=== PATIENT | female | born 1930 | race Caucasian/White ===

== ENCOUNTER 2017-04-13 12:19 | Emergency (ER) | payer MEDICARE, OTHER ==
[~2017-04-13] VITALS: Ht 175.3 cm; Wt 52.2 kg
[~2017-04-13 12:19] MED LIST: ASPIR 8181 MG PO; CARDIZEM CD180 MG PO; CENTRUM SILVER1 EAC1 PO; CENTRUM SILVER1 EAC3 PO; DIGOXIN125 MCG PO; OMEPRAZOLE40 MG PO; PROTONIX40 MG/ML PO; XANAX1 MG PO; Z DILTIAZEM PO; Z.0.LISINOPRIL10 MG PO; Z.0.OMEPRAZOLE20 M1 PO; [UNRECOGNIZED DRUG - OTHER] PO
[2017-04-13] MEDS ORDERED: SODIUM CHLORIDE 0.9% 1000ML 1,000 ML IV STA (12:36)
[2017-04-13] MEDS ORDERED: DIATRIZOATE MEGL/DIATRIZOA SOD 30 ML BTL PO ONE (12:47)
[2017-04-13 12:54] LABS: BASOPHILS % 0.8 % (0.0-1.0); EOSINOPHILS % 0.6 % (0.0-6.0); LYMPHOCYTES # (AUTO) 0.9 (1.0-3.2); LYMPHOCYTES % 17.9 % (18.0-39.1); MEAN CORPUSCULAR HEMOGLOBIN 30.5 pg (28-32); MEAN CORPUSCULAR HGB CONC 33.3 g/dL (31-35); MEAN CORPUSCULAR VOLUME 91.5 fL (81-99); MONOCYTES # (AUTO) 0.6 (0.2-0.8); MONOCYTES % 11.7 % (4.4-11.3); NEUTROPHILS # (AUTO) 3.4 (2.1-6.9); NEUTROPHILS % 68.8 % (38.7-80.0); PLATELET COUNT 176 x10e3/uL (140-360); RED BLOOD COUNT 4.26 x10e6/uL (3.6-5.1); RED CELL DISTRIBUTION WIDTH 12.2 % (11.7-14.4)
[2017-04-13 13:25] LABS: ALANINE AMINOTRANSFERASE 25 IU/L (0-55); ALBUMIN 4.3 g/dL (3.5-5.0); ALBUMIN/GLOBULIN RATIO 1.3 (0.8-2.0); ALKALINE PHOSPHATASE 86 IU/L (40-150); AMYLASE 56 U/L (25-125); ANION GAP 14.8 mmol/L (8-16); BLOOD UREA NITROGEN 8 mg/dL (7-26); BUN/CREATININE RATIO 11 (6-25); CALCIUM 9.4 mg/dL (8.4-10.2); CARBON DIOXIDE 29 mmol/L (22-29); CHLORIDE 95 mmol/L (98-107); EST GLOMERULAR FILTRATION RATE > 60 ML/MIN (60-); GLUCOSE 136 mg/dL (74-118); LIPASE 17 U/L (8-78); POTASSIUM 3.8 mmol/L (3.5-5.1); SODIUM 135 mmol/L (136-145)
--- NOTE | 2017-04-13 15:04 | Diagnostic Imaging Report ---
EXAM: CT Abdomen and Pelvis WITH contrast INDICATION: Lower abdominal pain, history of hernia COMPARISON: CT of the abdomen and pelvis from 12/29/2014 TECHNIQUE: Abdomen and pelvis were scanned utilizing a multidetector helical scanner from the lung base to the ischial tuberosities after administration of IV contrast. Coronal and sagittal reformations were obtained. Routine protocol was performed. Scan was performed when during portal venous phase. IV CONTRAST: 100 mL of Isovue-370 ORAL CONTRAST: Gastroview RADIATION DOSE: Total DLP: 180.43 mGy*cm Estimated effective dose: DLP x 0.015 mSv COMPLICATIONS: None FINDINGS: LINES and TUBES: None. LOWER THORAX: Cardiomegaly. Small right pleural effusion. HEPATOBILIARY: No focal hepatic lesions. No biliary ductal dilation. GALLBLADDER: Not visualized SPLEEN: No splenomegaly. PANCREAS: No ductal dilatation. 7 mm cystic-appearing lesion in the pancreatic body/tail (coronal series 301, image 25) is smaller than before. ADRENALS: 1.8 cm left adrenal nodule (series 2, image 23), unchanged. Moderate thickening of the right adrenal gland without discrete nodule, unchanged. KIDNEYS/URETERS: Kidneys enhance symmetrically. No hydronephrosis. 6.2 cm cyst in the inferior pole of the right kidney, unchanged. Tiny hypodensities in the left kidney likely represent cysts also. No stones. GI TRACT: No abnormal distention, wall thickening, or evidence of bowel obstruction. Numerous diverticula in the sigmoid colon. There is a moderate stool burden. The appendix is not well seen, but there is no suspicious inflammation in the right lower quadrant. PELVIC ORGANS/BLADDER: The uterus is absent. LYMPH NODES: No lymphadenopathy. VESSELS: There is moderate atherosclerotic disease in the aorta and major arterial branches. PERITONEUM / RETROPERITONEUM: No free air or fluid. BONES: Multilevel degenerative changes of the thoracic and lumbar spine. Facet arthrosis of the lower lumbar spine. Degenerative changes of the hips, left greater than right. SOFT TISSUES: Unremarkable. IMPRESSION: 1. No specific findings to account for the patient's pain. No hernia. 2. Indeterminate left adrenal nodule, unchanged. 3. Previously described cystic lesion in the pancreatic body is smaller than before. No pancreatic ductal dilatation. Consider follow-up MRI in one to 2 years to ensure stability. Pavel Rush MD Signed by: Dr. Pavel Rush M.D. on 04/13/2017 3:01 PM
[2017-04-13] MEDS ORDERED: IOPAMIDOL 370 MG/ML 200 ML INFUS..BTL INJ ONE (18:05)
[2017-04-13] MEDS ORDERED: SODIUM CHLORIDE 0.9% 50ML 50 ML ONE (18:05)
== END 2017-04-13 16:05 | disposition home or self-care (01) ==
LOC: ER 12:19
DX: R10.10 Upper abdominal pain, unspecified (principal); I10 Essential (primary) hypertension; I51.9 Heart disease, unspecified
CPT/HCPCS: 36415; 74177; 80053; 82150; 83690; 85025; 93005; 99284; Q9967

== ENCOUNTER 2018-08-05 14:35 | Emergency (ER) | payer MEDICARE, OTHER ==
[~2018-08-05] VITALS: Ht 175.3 cm; Wt 52.2 kg
[2018-08-05] MEDS ORDERED: MAGNESIUM/ALUMINUM/SIMETHICONE 30 ML UDC PO ONE (14:45)
[2018-08-05] MEDS ORDERED: ASPIRIN 81 MG CHEW TAB PO ONE (14:45)
[2018-08-05] MEDS ORDERED: LIDOCAINE VISC 2% SOLN 15 ML UDC PO ONE (14:45)
[2018-08-05] MEDS ORDERED: BELLADONNA ALK/PHENOBARBITAL 5 ML UDC PO ONE (14:45)
[2018-08-05 15:24] LABS: BASOPHILS % 0.4 % (0.0-1.0); EOSINOPHILS % 0.8 % (0.0-6.0); HEMATOCRIT 40.6 % (34.2-44.1); HEMOGLOBIN 13.7 g/dL (12.0-16.0); LYMPHOCYTES # (AUTO) 1.1 (1.0-3.2); LYMPHOCYTES % 22.3 % (18.0-39.1); MEAN CORPUSCULAR HEMOGLOBIN 30.4 pg (28-32); MEAN CORPUSCULAR HGB CONC 33.7 g/dL (31-35); MONOCYTES # (AUTO) 0.6 (0.2-0.8); MONOCYTES % 11.7 % (4.4-11.3); NEUTROPHILS # (AUTO) 3.1 (2.1-6.9); NEUTROPHILS % 64.6 % (38.7-80.0); PLATELET COUNT 199 x10e3/uL (140-360); RED BLOOD COUNT 4.51 x10e6/uL (3.6-5.1); RED CELL DISTRIBUTION WIDTH 13.8 % (11.7-14.4)
--- NOTE | 2018-08-05 15:32 | Diagnostic Imaging Report ---
EXAM: CHEST SINGLE (PORTABLE) DATE: 08/05/2018 2:42 PM INDICATION: Epigastric pain ^ERMD ORDER ^Y COMPARISON: Chest x-ray, 11/11/2015 FINDINGS: Lines and tubes: Stable appearance of implanted cardiac device on the left and transvenous lead positions. Cardiac silhouette is moderately enlarged. There is central pulmonary vascular prominence. No peripheral consolidation, pleural effusion or pneumothorax. Upper abdomen shows lucency beneath the right hemidiaphragm. No acute bony abnormality. Findings were discussed with Crys Saravia NP, in the emergency department on 08/05/2018 at 3:25 PM. IMPRESSION: 1. Cardiomegaly with central pulmonary vascular prominence. No consolidation or pneumothorax. 2. Lucency beneath the right hemidiaphragm is concerning for pneumoperitoneum, but may instead represent atelectasis at the right lung base. Recommend abdominal series with supine and upright views, or abdominal CT for further evaluation. Signed by: Dr. Elias Murray M.D. on 08/05/2018 3:28 PM
[2018-08-05 15:42] LABS: BILIRUBIN,URINE NEGATIVE (NEGATIVE); CLARITY,URINE CLEAR (CLEAR); COLOR,URINE YELLOW (YELLOW); KETONES,URINE NEGATIVE (NEGATIVE); LEUKOCYTE ESTERASE ,URINE NEGATIVE (NEGATIVE); NITRITE,URINE NEGATIVE (NEGATIVE); PROTEIN,URINE DIPSTICK NEGATIVE (NEGATIVE); URINE UROBILINOGEN 0.2 mg/dL (0.2 - 1)
[2018-08-05 16:13] LABS: INR 0.93; PARTIAL THROMBOPLASTIN TIME 35.2 seconds (23.8-35.5)
[2018-08-05 16:24] LABS: ALANINE AMINOTRANSFERASE 30 IU/L (0-55); ALBUMIN 4.2 g/dL (3.5-5.0); ALBUMIN/GLOBULIN RATIO 1.3 (0.8-2.0); ALKALINE PHOSPHATASE 84 IU/L (40-150); BLOOD UREA NITROGEN 10 mg/dL (7-26); BUN/CREATININE RATIO 14 (6-25); CALCIUM 9.9 mg/dL (8.4-10.2); CARBON DIOXIDE 33 mmol/L (22-29); CHLORIDE 95 mmol/L (98-107); CREATINE KINASE 109 IU/L (29-168); EST GLOMERULAR FILTRATION RATE > 60 ML/MIN (60-); GLUCOSE 96 mg/dL (74-118); LIPASE 19 U/L (8-78); MAGNESIUM 2.3 MG/DL (1.3-2.1); SODIUM 137 mmol/L (136-145)
--- NOTE | 2018-08-05 16:50 | Diagnostic Imaging Report ---
EXAM: ABDOMEN 2 VIEW DATE: 08/05/2018 3:26 PM INDICATION: ^R/O FREE AIR UNDER DIAPHRAM ^[id number] ^[id number] COMPARISON: Chest x-ray, 08/05/2018 FINDINGS: 3 views of the abdomen were obtained supine and upright. There is a normal distribution of air in the small and large bowel. On upright view there is no clear evidence for pneumoperitoneum. Linear densities at the level of the right hemidiaphragm likely represent lung base atelectasis and mild pleural thickening. There are no abnormal fluid levels in the abdomen. Noted is cardiomegaly and intracardiac leads. There is mild scoliosis with degenerative change in the thoracolumbar spine. There is degenerative change at the hips, more advanced on the left. IMPRESSION: 1. No bowel dilatation or evidence for bowel obstruction. 2. No pneumoperitoneum or abnormal fluid levels seen on upright view. There is likely atelectasis, scarring and mild pleural thickening at the right lung base. Signed by: Dr. Elias Murray M.D. on 08/05/2018 4:47 PM
== END 2018-08-05 17:32 | disposition home or self-care (01) ==
LOC: ER 14:35
DX: R07.89 Other chest pain (principal); K21.9 Gastro-esophageal reflux disease without esophagitis; I51.7 Cardiomegaly; I10 Essential (primary) hypertension; Z85.42 Personal history of malignant neoplasm of other parts of uterus; Z95.0 Presence of cardiac pacemaker
CPT/HCPCS: 36415; 71045; 74019; 80053; 81001; 82550; 82553; 83690; 83735; 84484; 85025; 85610; 85730; 87086; 93005; 99284

== ENCOUNTER → 2018-10-06 | Outpatient (CLI) | payer MEDICARE ==
[~2018-10-06] MED LIST changes: +IOPAMIDOL 370 MG/ML 200 ML INFUS..BTL INJ ONE; +SODIUM CHLORIDE 0.9% 50ML 50 ML ONE
[2018-10-06 18:30] LABS: BLOOD UREA NITROGEN 10 mg/dL (7-26); BUN/CREATININE RATIO 15 (6-25); CREATININE, SERUM 0.67 mg/dL (0.57-1.11); EST GLOMERULAR FILTRATION RATE > 60 ML/MIN (60-)
--- NOTE | 2018-10-07 09:48 | Diagnostic Imaging Report ---
CT of the abdomen and pelvis, with contrast, 10/07/2018. History: Right-sided abdominal pain, hiatal hernia. Comparison: 04/13/2017. Technique: Multidetector CT scanning of the abdomen and pelvis was performed from the level of the lung bases to the inferior pubic rami after intravenous administration of contrast. Coronal and sagittal multiplanar reformations were obtained. RADIATION DOSE: Total DLP: 387 mGy*cm Dose modulation, iterative reconstruction, and/or weight based adjustment of the mA/kV was utilized to reduce the radiation dose to as low as reasonably achievable. Discussion: LUNG BASES: The heart is enlarged. Pacer wires are present. Small right pleural effusion is present. There is bilateral subsegmental atelectasis. ABDOMEN: A 7.0 x 6.7 x 8.6 cm right renal lower pole exophytic simple cyst is present, previously measuring 6.2 x 6.2 x 7.2 cm. A small left parapelvic renal cyst is also noted. There is persistent thickening of the right adrenal gland. 1.8 cm left adrenal nodule is unchanged, measuring -3 Hounsfield units in density on precontrast exam. 7 mm cyst in the pancreatic tail is unchanged. The liver, biliary tree, and spleen are normal. The gallbladder is not visualized. The hepatic vein, portal vein, and splenic vein are patent. The abdominal aorta is within normal limits for size. Evaluation of bowel is limited without oral contrast. There is no bowel dilatation. There is no evidence of adenopathy or free fluid. PELVIS: The bladder is distended. The uterus and adnexa are not visualized. There is no evidence of free fluid or adenopathy. BONES AND SOFT TISSUES: Degenerative changes are present throughout the lumbar spine and both hips without evidence of lytic or sclerotic lesion. IMPRESSION: 1. Slight increase in size of large simple right renal cyst. 2. Stable benign left adrenal adenoma. 3. Stable 7 mm pancreatic tail cystic lesion. 4. Status post cholecystectomy and hysterectomy. Signed by: Delano Vargas on 10/07/2018 9:45 AM
== END ==
LOC: CT 17:18
PROVIDERS: ATTEND Internal Medicine
DX: R10.31 Right lower quadrant pain (principal)
CPT/HCPCS: 36415; 74177; 82565; 84520; Q9967

== ENCOUNTER 2018-10-25 22:15 | Emergency (ER) | payer MEDICARE ==
[~2018-10-25] VITALS: Ht 175.3 cm; Wt 52.2 kg
[~2018-10-25 22:15] MED LIST changes: -IOPAMIDOL 370 MG/ML 200 ML INFUS..BTL INJ ONE; -SODIUM CHLORIDE 0.9% 50ML 50 ML ONE
[2018-10-25] MEDS ORDERED: ASPIRIN 81 MG CHEW TAB PO ONE (22:30)
[2018-10-25 23:03] LABS: BASOPHILS # (AUTO) 0.1 (0.0-0.1); BASOPHILS % 0.9 % (0.0-1.0); EOSINOPHILS # (AUTO) 0.1 (0.0-0.4); EOSINOPHILS % 1.2 % (0.0-6.0); HEMATOCRIT 38.3 % (34.2-44.1); HEMOGLOBIN 12.2 g/dL (12.0-16.0); LYMPHOCYTES # (AUTO) 1.6 (1.0-3.2); LYMPHOCYTES % 23.7 % (18.0-39.1); MEAN CORPUSCULAR HEMOGLOBIN 29.8 pg (28-32); MEAN CORPUSCULAR HGB CONC 31.9 g/dL (31-35); MEAN CORPUSCULAR VOLUME 93.4 fL (81-99); MONOCYTES # (AUTO) 0.8 (0.2-0.8); MONOCYTES % 12.2 % (4.4-11.3); NEUTROPHILS # (AUTO) 4.1 (2.1-6.9); NEUTROPHILS % 61.8 % (38.7-80.0); PLATELET COUNT 161 x10e3/uL (140-360); RED CELL DISTRIBUTION WIDTH 12.5 % (11.7-14.4)
--- NOTE | 2018-10-25 23:15 | Diagnostic Imaging Report ---
EXAMINATION: CHEST SINGLE (PORTABLE) COMPARISON: Obstructive series 08/05/18 INDICATION: Chest pain, tachycardia ^ERMD ORDER ^[id number] ^[id number] ^Y DISCUSSION: Frontal view of the chest obtained at 2234 hours. HEART AND MEDIASTINUM: Stable cardiomegaly LINES: Dual-lead pacemaker wires terminate in the right atrium and right ventricle LUNGS: Diffuse hyperinflation consistent with COPD. There are calcifications throughout the tracheobronchial tree. No pneumonia or pulmonary edema. PLEURA: No pleural effusion or pneumothorax. BONES AND SOFT TISSUES: The bones are diffusely demineralized without focal osseous lesion. The soft tissues are normal. IMPRESSION: Cardiomegaly without vascular congestion. COPD. No acute pulmonary process. Signed by: Dr. Orion Rodriguez MD on 10/25/2018 11:11 PM
[2018-10-25 23:24] LABS: ALANINE AMINOTRANSFERASE 18 IU/L (0-55); ALBUMIN 4.2 g/dL (3.5-5.0); ALBUMIN/GLOBULIN RATIO 1.3 (0.8-2.0); ALKALINE PHOSPHATASE 73 IU/L (40-150); ANION GAP 12.9 mmol/L (8-16); BLOOD UREA NITROGEN 10 mg/dL (7-26); BUN/CREATININE RATIO 14 (6-25); CALCIUM 10.1 mg/dL (8.4-10.2); CARBON DIOXIDE 32 mmol/L (22-29); CHLORIDE 95 mmol/L (98-107); CREATINE KINASE 112 IU/L (29-168); EST GLOMERULAR FILTRATION RATE > 60 ML/MIN (60-); GLUCOSE 95 mg/dL (74-118); POTASSIUM 3.9 mmol/L (3.5-5.1); SODIUM 136 mmol/L (136-145)
== END 2018-10-26 00:20 | disposition home or self-care (01) ==
LOC: ER 22:15
DX: R07.89 Other chest pain (principal)
CPT/HCPCS: 36415; 71045; 80053; 82550; 82553; 83880; 84484; 85025; 93005; 99284